=== PATIENT | female | born 1930 | race Caucasian/White ===

== ENCOUNTER 2017-04-07 16:28 | Observation (INO) ==
[2017-04-07] MEDS ORDERED: ONDANSETRON 4 MG/2 ML VIAL IV PRN (16:34)
[2017-04-07] MEDS ORDERED: ACETAMINOPHEN 325 MG TABLET PO PRN (16:34)
--- NOTE | 2017-04-07 17:37 | General Surg History&Physical ---
Assessment and Plan - Time spent with patient Time spent with patient: Less than 30 minutes (1) Post-op bleeding Problem details: Patient with post op bleeding, admitted for observation and possible control of bleeding if it recurs vs. evacuation of hematoma in the morning. Status: Acute Assessment and plan: We will plan to observe with serial labs; watch her vitals closely overnight, and take to surgery in the morning if she develops a hematoma. If she remains stable we can probably discharge home in the morning. History of Present Illness Chief complaint: Post procedural bleeding History of present illness: Ms. Brothers is a 86 year old female who presented to the office today for elective removal of a recurrent lesion of the left gluteal region. This was accomplished with some difficulty, and once the area had been removed, there was more than the anticipated amount of post procedural bleeding encountered. Using a combination of electrocautery, vicryl sutures, and nylon sutures, the bleeding area was ligated and the skin area was eventually sutured closed. It became evident that, with the difficulty we had in controlling the area, she was at an increased risk for hematoma or recurrent bleeding. She is an elderly lady who lives alone, over 40 miles from [place], and Dr Bird felt we needed to admit her overnight for observation of her labs and vital signs; if there is significant bleeding she may need to be taken to the operating room for control of this area. Home Medications Medication Instructions Recorded Confirmed Type Ascorbic Acid [Vitamin C] 1,000 mg PO BID 10/05/16 10/06/16 History Aspirin Tab 325 mg PO DAILY 10/05/16 10/06/16 History Carvedilol 12.5 mg PO BID 10/05/16 10/06/16 History Cholecalciferol (Vitamin D3) 5,000 unit PO DAILY 10/05/16 10/06/16 History [Vitamin D3] Cyanocobalamin (Vitamin B-12) 1,000 mcg PO DIRECTED 10/05/16 10/06/16 History [Vitamin B-12] Levothyroxine Tab [Synthroid Tab] 125 mcg PO DAILY 10/05/16 10/06/16 History Allergies Allergy/AdvReac Type Severity Reaction Status Date / Time codeine Allergy Vomiting Verified 10/06/16 07:08 Sulfa (Sulfonamide Allergy Vomiting Verified 10/06/16 07:08 Antibiotics) Medical,Surgical,& Family Hx - Medical History Neurology: No history of: Seizures Rheumatology: History of;: Psoriasis (Psoriatic arthritis) - Social History Smoking Status: Former smoker Exam - Constitutional General appearance: no acute distress - Head Head exam: Present: normal inspection - Eye Eye exam: Present: EOMI Pupils: Present: TITO - ENT Mouth exam: Present: normal voice - Respiratory Respiratory exam: Present: clear to auscultation bilaterally. Absent: rales, wheezes - Cardiovascular Cardiovascular exam: Present: RRR - GI/Abdominal GI/Abdominal exam: Present: hypoactive bowel sounds - Anus/Rectum Anus/Rectum: other (Approximated but oozing incision of the left gluteal area.) - Extremities Exam Extremities exam: Present: normal inspection - Neurological Exam Neurological exam: Present: alert, oriented X3 - Skin Skin exam: Present: warm, dry Quality Measures - VTE Contraindication to Pharmacological VTE Prophylaxis: High Risk of Bleeding
[2017-04-07 17:50] LABS: Basophils % 0.5 % (0.0-0.8); Eosinophils # 0.1 10*3/uL (0.0-0.87); Eosinophils % 1.5 % (0.00-10.9); Hematocrit 42.3 VOL% (35.7-47.0); Immature Granulocytes % 0.3 %; Immature Granulocytes Absolute 0.02 #; Lymphocytes # 2.7 10*3/uL (1.4-4.0); Mean Corpuscular HGB Conc 33.1 GM/DL (32-36); Mean Corpuscular Hemoglobin 31 PG (27-34); Mean Corpuscular Volume 92.8 FL (87-102); Mean Platelet Volume 11.5 FL (9.6-12.0); Monocytes # 0.4 10*3/uL (0.11-0.8); Monocytes % 6.3 % (1.7-12.7); Neutrophils # 2.7 10*3/uL (1.4-7.4); Neutrophils % 45.4 % (38.7-73.9); Platelet Count 144 T/CUMM (130-400); Red Blood Count 4.56 MC/CUMM (3.8-5.5); Red Cell Distribution Width 12.8 % (9.3-17.3); White Blood Count 5.9 T/CUMM (4-12)
[2017-04-07 18:01] LABS: PT Patient Result 11.1 SECS
[2017-04-07 18:32] LABS: Albumin 4.2 G/DL (3.4-5.0); Bilirubin,Total 0.7 MG/DL (0.2-1.0); Calcium 9.6 MG/DL (8.5-10.1); Osmolality,Calculated 272.7 MOS/KG (273-304); Potassium 4.2 MMOL/L (3.5-5.1); Total Protein 7.5 G/DL (6.4-8.3)
[2017-04-08 03:04] LABS: Basophils % 0.8 % (0.0-0.8); Eosinophils # 0.1 10*3/uL (0.0-0.87); Eosinophils % 1.8 % (0.00-10.9); Hematocrit 38.8 VOL% (35.7-47.0); Hemoglobin 12.8 GM/DL (12.0-16.0); Immature Granulocytes % 0.2 %; Immature Granulocytes Absolute 0.01 #; Lymphocytes # 2.8 10*3/uL (1.4-4.0); Lymphocytes % 55.1 % (21.3-54.2); Mean Corpuscular Hemoglobin 31 PG (27-34); Mean Corpuscular Volume 92.4 FL (87-102); Mean Platelet Volume 11.4 FL (9.6-12.0); Monocytes # 0.3 10*3/uL (0.11-0.8); Monocytes % 6.4 % (1.7-12.7); Neutrophils # 1.8 10*3/uL (1.4-7.4); Neutrophils % 35.7 % (38.7-73.9); Platelet Count 132 T/CUMM (130-400); Red Cell Distribution Width 12.8 % (9.3-17.3); White Blood Count 5.1 T/CUMM (4-12)
[2017-04-08 03:34] LABS: Band Neutrophils 2 % (0-10); Lymphocytes 53 % (20-55); Myelocytes 3 %; Segmented Neutrophils 42 % (50-85)
[2017-04-08 03:35] LABS: Albumin 3.6 G/DL (3.4-5.0); Bilirubin,Total 0.6 MG/DL (0.2-1.0); Calcium 9.1 MG/DL (8.5-10.1); Osmolality,Calculated 278.3 MOS/KG (273-304); Potassium 4.1 MMOL/L (3.5-5.1); Total Protein 6.6 G/DL (6.4-8.3)
[2017-04-08 03:38] LABS: Platelet Estimate Adequate; Total Cells Counted 100
[2017-04-08 08:23] VITALS: BP 157/55
[2017-04-08] MEDS ORDERED: PANTOPRAZOLE 40 MG TABLET PO SCH (09:00)
--- NOTE | 2017-04-08 09:13 | Discharge Summary ---
Hospital Course - Hospital Course Hospital Course: Discharge summary 04/08/2017. Diagnosis: 1. Postprocedural bleeding the left buttocks Brief [id number]old white female seen in our office for elective excision of unusual recurrent lesion of left buttocks. This had initially been removed in the office, and we felt it feasible to re-excise, however once the lesion was removed, it became evident that she had a good deal oozing from the skin edges, making quite difficult to achieve hemostasis. With combination of electrocautery and layered closure, we were eventually able to get the wound dry and closed, but remained concerned that the area would develop recurrent bleeding, additional significant bruising, and/or hematoma. At that point, Dr. Bird felt we needed to admit her for observation. She was placed in observation status at the hospital, where her initial hematocrit was found to be 48. Her vital signs were stable, and the wound was dry with minimal oozing from the skin edges. She had clear liquids without nausea vomiting or any signs of syncope. We did hold her n.p.o. overnight, with the plans for reassessing the wound this morning and evacuating any hematoma or reinspecting for bleeding if necessary. The wound remained dry overnight, not requiring any reinforcement of the dressing, and this morning she is awake and alert without symptoms, vital signs are completely stable, she is not short of breath and is ambulatory in the room without assistance. Her hematocrit is 35, the wound is clean and dry. There is a moderate degree of ecchymosis present but no signs of hematoma, and there is no oozing from the skin edges. With the wound looking stable and no evidence of ongoing bleeding or signs of hematoma, we will therefore plan to send her home although we will enlist the help of a home health agency in her area to help observe and manage her wound care. Will resume all her home medications, in particular her 81 mg aspirin, and plan to have her use a donut cushion for sitting in addition to the local care with triple antibiotic ointment and foam dressings. We will plan to follow-up on the pathology report as indicated, and see her back in the office in approximately 2 weeks for consideration for suture removal. - Time spent with patient Time with patient DS: Less than 30 minutes Diagnosis - Discharge Diagnosis (1) Post-op bleeding Status: Acute Specialty Discharge - Follow Up or Referrals Follow up with: Daniel Bird MD [Physician] - 2 Weeks (Call our office Tuesday to schedule a 2 week appointment for suture removal) Discharge Plan - Discharge Data Disposition: Home Health Service Condition at Discharge: Stable Discharge Diet: advance to your usual diet Activity: other (Limit sitting; use a doughnut cushion) Hygiene: may shower Weight Bearing at Discharge: full weight bearing Driving: not for (24 hour) Contact your physician if you experience:: Redness or swelling, Shortness of breath, Bleeding, pain uncontrolled by pain medications Wound / Dressing Care Instructions: Shower daily using antibacterial soap and water. Rinse well and pat dry. Apply thin film of triple antibiotic ointment to suture line only. Cover with foam adhesive dressing. - Discharge Medications Continue Levothyroxine Tab [Synthroid Tab] 125 mcg PO DAILY Cyanocobalamin (Vitamin B-12) [Vitamin B-12] 1,000 mcg PO DIRECTED Cholecalciferol (Vitamin D3) [Vitamin D3] 5,000 unit PO DIRECTED Carvedilol 12.5 mg PO BID Ascorbic Acid [Vitamin C] 1,000 mg PO DIRECTED Aspirin Tab 325 mg PO DAILY Oxycodone HCl/Acetaminophen [Oxycodon-Acetaminophen 7.5-325] 1 each PO Q4-6H PRN PRN Reason: Pain Moderate To Severe (4-10) - Follow Up or Referral Follow Up: Daniel Bird MD [Physician] - 2 Weeks (Call our office Tuesday to schedule a 2 week appointment for suture removal) - Forms/Instructions Exam - Constitutional Vitals: Period Temp Pulse Resp BP Sys/Serrano Pulse Ox Last 24 Hr 97.1 F-98.3 F 61-75 16-20 100-157/49-65 90-97 General appearance: normal weight, no acute distress - Head Head exam: Present: normal inspection - Eye Eye exam: Present: EOMI. Absent: nystagmus, periorbital swelling Pupils: Present: TITO - Respiratory Respiratory exam: Present: clear to auscultation bilaterally. Absent: wheezes - Cardiovascular Cardiovascular exam: Present: regular rate and rhythm - GI/Abdominal GI/Abdominal exam: Present: hypoactive bowel sounds, soft. Absent: distended - Extremities Exam Extremities exam: Present: normal inspection - Back Exam Back exam: Present: other (Left buttocks incision is clean and well approximated , without oozing or active bleeding from the skin edges. There is moderate amount of ecchymosis in the superior medial aspect, but this is soft and nontender. There is no evidence of hematoma. He is not unusually tender.) - Neurological Exam Neurological exam: Present: alert, oriented X3, normal gait - Psychiatric Psychiatric exam: Present: normal affect, normal mood Discharge Results Labs on day of discharge: Labs from last 24 hours 04/08/17 04/08/17 04/07/17 02:46 02:46 17:18 WBC 5.1 RBC 4.20 Hgb 12.8 Hct 38.8 MCV 92.4 MCH 31 MCHC 33.0 RDW 12.8 Plt Count 132 MPV 11.4 Neut % (Auto) 35.7 L Lymph % (Auto) 55.1 H [place] % (Auto) 6.4 Eos % (Auto) 1.8 Baso % (Auto) 0.8 Neut # (Auto) 1.8 Lymph # (Auto) 2.8 [place] # (Auto) 0.3 Eos # (Auto) 0.1 Baso # (Auto) 0.0 Total Counted 100 Immature Gran % 0.2 Nucleated RBC % 0.0 Immature Gran # 0.01 Segmented Neutrophils 42 L Band Neutrophils 2 Lymphocytes 53 Myelocytes 3 Nucleated RBCs # 0.00 Platelet Estimate Adequate Immature Plt Fraction 0.0 INR 1.0 PT Patient/Control Mix 11.1 Sodium 141 Potassium 4.1 Chloride 105 Carbon Dioxide 31 Anion Gap 9.1 BUN 9 Creatinine 0.50 L GFR Calculation 91 BUN/Creatinine Ratio 18.00 Glucose 84 Calculated Osmolality 278.3 Calcium 9.1 Total Bilirubin 0.60 AST 13 ALT 11 L Alkaline Phosphatase 53 Total Protein 6.6 Albumin 3.6 Globulin 3.0 Albumin/Globulin Ratio 1.2 04/07/17 04/07/17 17:18 17:18 WBC 5.9 RBC 4.56 Hgb 14.0 Hct 42.3 MCV 92.8 MCH 31 MCHC 33.1 RDW 12.8 Plt Count 144 MPV 11.5 Neut % (Auto) 45.4 Lymph % (Auto) 46.0 [place] % (Auto) 6.3 Eos % (Auto) 1.5 Baso % (Auto) 0.5 Neut # (Auto) 2.7 Lymph # (Auto) 2.7 [place] # (Auto) 0.4 Eos # (Auto) 0.1 Baso # (Auto) 0.0 Total Counted Immature Gran % 0.3 Nucleated RBC % 0.0 Immature Gran # 0.02 Segmented Neutrophils Band Neutrophils Lymphocytes Myelocytes Nucleated RBCs # 0.00 Platelet Estimate Immature Plt Fraction 0.0 INR PT Patient/Control Mix Sodium 138 Potassium 4.2 Chloride 101 Carbon Dioxide 31 Anion Gap 10.2 BUN 10 Creatinine 0.60 GFR Calculation 86 BUN/Creatinine Ratio 16.00 Glucose 82 Calculated Osmolality 272.7 L Calcium 9.6 Total Bilirubin 0.70 AST 17 ALT 14 Alkaline Phosphatase 59 Total Protein 7.5 Albumin 4.2 Globulin 3.3 Albumin/Globulin Ratio 1.2 DS: Provider Date of admission: 04/07/17 16:54 Primary care physician: Cinda Webb Attending physician on admission: Daniel Bird MD Discharging clinician: Keya Garrison CNP, R
--- NOTE | 2017-04-08 10:05 | EKG Report ---
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
== END 2017-04-08 13:15 | disposition home health service (06) ==
LOC: N.4E
PROVIDERS: ADMIT Specialist; ATTEND Specialist

== ENCOUNTER 2019-10-08 10:49 | Observation (INO) ==
[2019-10-08] MEDS ORDERED: DICLOFENAC 1.3% PATCH 5/PACK TRANSDERM PRN (14:05)
[2019-10-08 14:41] LABS: Risk Ratio 3.16; Thyroid Stimulating Hormone 3.36 uIU/ml (0.358-3.74); VLDL CHOLESTEROL 20.2 MG/DL
[2019-10-08] MEDS ORDERED: cefTRIAXone 1,000 MG in SYRINGE 1 EACH IV SCH ×2 (15:00→16:00)
[2019-10-08] MEDS ORDERED: AZITHROMYCIN 250 MG TABLET PO SCH ×2 (15:00→16:00)
[2019-10-08] MEDS ORDERED: FUROSEMIDE 40 MG/4 ML VIAL IV SCH (16:00)
[2019-10-08] MEDS: FUROSEMIDE 40 MG/4 ML VIAL IV SCH (16:36)
[2019-10-08] MEDS: HEPARIN 5,000 UNIT/1 ML VIAL SUBCUT SCH (16:49)
[2019-10-08 17:40] LABS: Apearance,Urine CLEAR (Clear); Bilirubin,Urine Negative (Negative); Blood, Urine Negative (Negative); Glucose,Urine (UA) Negative (Negative); Ketones,Urine Negative (Negative); Mucus,Urine Occasional /LPF (Occasional); Nitrite,Urine Negative (Negative); Protein,Urine Negative; RBC,Urine 2 /HPF (0-4); Squamous Epithelial Cell,Urine Occasional /HPF (0-10); Urine Color Straw (Yellow); Urine Specific Gravity 1.004 (1.001-1.035); Urine Urobilinogen < 2.0 EU/DL (0.2-1.0); WBC,Urine 6 /HPF (0-6)
[2019-10-08] MEDS: ALBUTEROL/IPRATROPIUM 3 ML NEB RESP TX SCH (18:58)
[2019-10-08] MEDS ORDERED: ALBUTEROL/IPRATROPIUM 3 ML NEB RESP TX SCH (19:00)
[2019-10-08] MEDS: oxyCODONE/ACETAMINOPHEN 5-325 MG TABLET PO PRN (20:04)
[2019-10-08] MEDS: guaiFENesin/DM ER 600-30 MG TABLET PO SCH (20:04)
[2019-10-08] MEDS: carvediloL 12.5 MG TABLET PO SCH (20:04)
[2019-10-08] MEDS ORDERED: carvediloL 6.25 MG TABLET PO SCH (21:00)
[2019-10-09] MEDS: HEPARIN 5,000 UNIT/1 ML VIAL SUBCUT SCH ×2 (00:07→09:12)
[2019-10-09] MEDS: ALBUTEROL/IPRATROPIUM 3 ML NEB RESP TX SCH ×4 (01:28→19:39)
[2019-10-09 05:01] LABS: Basophils % 0.7 % (0.0-0.8); Eosinophils # 0.2 10*3/uL (0.0-0.87); Eosinophils % 2.6 % (0.00-10.9); Hematocrit 39.6 VOL% (35.7-47.0); Hemoglobin 12.4 GM/DL (12.0-16.0); Immature Granulocytes % 0.3 %; Immature Granulocytes Absolute 0.02 #; Lymphocytes % 34.8 % (21.3-54.2); Mean Corpuscular HGB Conc 31.3 GM/DL (32-36); Mean Corpuscular Volume 97.5 FL (87-102); Mean Platelet Volume 11.7 FL (9.6-12.0); Monocytes % 8.4 % (1.7-12.7); Neutrophils % 53.2 % (38.7-73.9); Platelet Count 149 T/CUMM (130-400); Red Blood Count 4.06 MC/CUMM (3.8-5.5); Red Cell Distribution Width 13.3 % (9.3-17.3); White Blood Count 5.8 T/CUMM (4-12)
[2019-10-09] MEDS ORDERED: THYROID 60 MG TABLET PO SCH (09:00)
[2019-10-09] MEDS ORDERED: ASPIRIN EC 81 MG TABLET PO SCH (09:00)
[2019-10-09] MEDS ORDERED: ASCORBIC ACID 500 MG TABLET PO SCH (09:00)
[2019-10-09] MEDS: guaiFENesin/DM ER 600-30 MG TABLET PO SCH ×2 (09:11→21:20)
[2019-10-09] MEDS: FUROSEMIDE 40 MG/4 ML VIAL IV SCH ×2 (09:11→16:27)
[2019-10-09] MEDS: carvediloL 12.5 MG TABLET PO SCH ×2 (09:12→21:20)
[2019-10-09] MEDS: MULTIVITAMIN (CENTRUM) TABLET PO SCH (09:12)
[2019-10-09] MEDS: CHOLECALCIFEROL 5,000 UNIT TABLET PO SCH (09:12)
[2019-10-09] MEDS: ASPIRIN EC 81 MG TABLET PO SCH (09:12)
[2019-10-09 11:36] LABS: Free T4 (Free Thyroxine) 0.63 NG/DL (0.76-1.46)
[2019-10-09] MEDS: APIXABAN 2.5 MG TABLET PO SCH (21:20)
[2019-10-09] MEDS: ASCORBIC ACID 500 MG TABLET PO SCH (21:21)
[2019-10-10] MEDS: ALBUTEROL/IPRATROPIUM 3 ML NEB RESP TX SCH ×4 (01:20→14:03)
[2019-10-10 04:39] LABS: Basophils # 0.1 10*3/uL (0.0-0.2); Basophils % 0.7 % (0.0-0.8); Eosinophils # 0.2 10*3/uL (0.0-0.87); Eosinophils % 3.2 % (0.00-10.9); Hematocrit 40.1 VOL% (35.7-47.0); Hemoglobin 13.4 GM/DL (12.0-16.0); Immature Granulocytes % 0.6 %; Immature Granulocytes Absolute 0.04 #; Lymphocytes # 2.4 10*3/uL (1.4-4.0); Lymphocytes % 34.7 % (21.3-54.2); Mean Corpuscular HGB Conc 33.4 GM/DL (32-36); Mean Corpuscular Volume 92.6 FL (87-102); Mean Platelet Volume 11.7 FL (9.6-12.0); Monocytes % 8.7 % (1.7-12.7); Neutrophils % 52.1 % (38.7-73.9); Platelet Count 182 T/CUMM (130-400); Red Blood Count 4.33 MC/CUMM (3.8-5.5); Red Cell Distribution Width 13.2 % (9.3-17.3); White Blood Count 6.9 T/CUMM (4-12)
[2019-10-10 05:05] LABS: Calcium 9.2 MG/DL (8.5-10.1); Osmolality,Calculated 267.4 MOS/KG (273-304)
[2019-10-10] MEDS ORDERED: THYROID 60 MG TABLET PO SCH (07:00)
[2019-10-10] MEDS: oxyCODONE/ACETAMINOPHEN 5-325 MG TABLET PO PRN (08:47)
[2019-10-10] MEDS: guaiFENesin/DM ER 600-30 MG TABLET PO SCH (08:47)
[2019-10-10] MEDS: CHOLECALCIFEROL 5,000 UNIT TABLET PO SCH (08:47)
[2019-10-10] MEDS: MULTIVITAMIN (CENTRUM) TABLET PO SCH (08:49)
[2019-10-10] MEDS: ASCORBIC ACID 500 MG TABLET PO SCH (08:49)
[2019-10-10] MEDS: ASPIRIN EC 81 MG TABLET PO SCH (08:49)
[2019-10-10] MEDS: APIXABAN 2.5 MG TABLET PO SCH (08:49)
[2019-10-10] MEDS: carvediloL 12.5 MG TABLET PO SCH (08:49)
[2019-10-10] MEDS: FUROSEMIDE 40 MG/4 ML VIAL IV SCH (08:50)
[2019-10-10 11:40] VITALS: BP 93/47
[2019-10-11] MEDS ORDERED: FUROSEMIDE 40 MG TABLET PO SCH (09:00)
[2019-11-06] MEDS ORDERED: CYANOCOBALAMIN 500 MCG TABLET PO SCH (09:00)
== END 2019-10-10 15:36 | disposition swing bed (61) ==
LOC: INTOOBSV 11:10 → N.TELES 11:10 → SUATTDRO 11:10
PROVIDERS: ADMIT Internal Medicine; ATTEND Internal Medicine

== ENCOUNTER 2020-09-26 12:13 | Observation (INO) ==
[2020-09-26] MEDS ORDERED: ONDANSETRON 4 MG/2 ML VIAL IV PRN (16:36)
[2020-09-26] MEDS ORDERED: GLUCAGON 1 MG VIAL IM PRN (16:36)
[2020-09-26] MEDS ORDERED: DEXTROSE 50% 25 GM/50 ML VIAL IV PRN (16:36)
[2020-09-26] MEDS ORDERED: ENOXAPARIN 30 MG/0.3 ML SYRINGE SUBCUT SCH (17:00)
[2020-09-26] MEDS ORDERED: [UNRECOGNIZED DRUG - OTHER] TOP PRN (18:41)
[2020-09-26 19:43] LABS: Basophils % 0.4 % (0.0-0.8); Eosinophils # 0.1 10*3/uL (0.0-0.87); Eosinophils % 1.1 % (0.00-10.9); Hematocrit 42.1 VOL% (35.7-47.0); Hemoglobin 13.2 GM/DL (12.0-16.0); Immature Granulocytes % 0.2 %; Immature Granulocytes Absolute 0.01 #; Lymphocytes # 1.4 10*3/uL (1.4-4.0); Lymphocytes % 30.7 % (21.3-54.2); Mean Corpuscular HGB Conc 31.4 GM/DL (32-36); Mean Corpuscular Volume 94.4 FL (87-102); Mean Platelet Volume 11.8 FL (9.6-12.0); Monocytes % 7.1 % (1.7-12.7); Neutrophils % 60.5 % (38.7-73.9); Platelet Count 123 T/CUMM (130-400); Red Blood Count 4.46 MC/CUMM (3.8-5.5); Red Cell Distribution Width 13.5 % (9.3-17.3); White Blood Count 4.6 T/CUMM (4-12)
[2020-09-26 19:54] LABS: Calcium 9.1 MG/DL (8.5-10.1); Osmolality,Calculated 277.5 MOS/KG (273-304); Potassium 4.1 MMOL/L (3.5-5.1)
[2020-09-26 21:06] LABS: Alanine Aminotransferase 9 U/L (13-56); Albumin 2.8 G/DL (3.4-5.0); Alkaline Phosphatase 62 U/L (45-117); Aspartate Amino Transferase 15 U/L (0-37); Blood Urea Nitrogen 9 MG/DL (7-18); Calcium 8.9 MG/DL (8.5-10.1); Carbon Dioxide 29 MMOL/L (21-32); Estimated Glom Filtration Rate 87 ML/MIN; Glucose 105 MG/DL (74-106); Potassium 3.9 MMOL/L (3.5-5.1); Sodium 136 MMOL/L (136-145); Total Protein 6.4 G/DL (5.0-7.5); Troponin I < 0.015 NG/ML (0.00-0.045)
[2020-09-26] MEDS: carvediloL 12.5 MG TABLET PO SCH (21:40)
[2020-09-27] MEDS: THYROID 60 MG TABLET PO SCH (05:45)
[2020-09-27] MEDS: ACETAMINOPHEN 325 MG TABLET PO PRN ×2 (05:45→16:09)
[2020-09-27 05:55] LABS: Basophils % 0.6 % (0.0-0.8); Eosinophils # 0.1 10*3/uL (0.0-0.87); Eosinophils % 2.3 % (0.00-10.9); Hematocrit 37.5 VOL% (35.7-47.0); Immature Granulocytes % 0.2 %; Immature Granulocytes Absolute 0.01 #; Lymphocytes # 1.7 10*3/uL (1.4-4.0); Lymphocytes % 35.7 % (21.3-54.2); Mean Platelet Volume 11.2 FL (9.6-12.0); Monocytes % 9.3 % (1.7-12.7); Neutrophils % 51.9 % (38.7-73.9); Platelet Count 122 T/CUMM (130-400); Red Blood Count 3.99 MC/CUMM (3.8-5.5); Red Cell Distribution Width 13.3 % (9.3-17.3); White Blood Count 4.7 T/CUMM (4-12)
[2020-09-27 06:11] LABS: Hypochromasia Slight; Microcytosis Slight
[2020-09-27 06:17] LABS: Potassium 3.7 MMOL/L (3.5-5.1)
[2020-09-27 06:22] LABS: Troponin I < 0.015 NG/ML (0.00-0.045)
[2020-09-27] MEDS: MULTIVITAMIN (CENTRUM) TABLET PO SCH (08:17)
[2020-09-27] MEDS: CHOLECALCIFEROL 5,000 UNIT TABLET PO SCH (08:17)
[2020-09-27] MEDS: ASCORBIC ACID 500 MG TABLET PO SCH (08:17)
[2020-09-27] MEDS: carvediloL 12.5 MG TABLET PO SCH ×2 (08:17→16:09)
[2020-09-27] MEDS: CYANOCOBALAMIN 500 MCG TABLET PO SCH (08:17)
[2020-09-27] MEDS ORDERED: ASPIRIN 325 MG TABLET PO SCH (09:00)
[2020-09-27] MEDS ORDERED: FUROSEMIDE 40 MG/4 ML VIAL IV SCH (09:00)
[2020-09-27 17:09] LABS: Bilirubin,Urine Negative (Negative); Blood, Urine Negative (Negative); Glucose,Urine (UA) Negative (Negative); Hyaline Casts,Urine 1 /LPF (0-3); Ketones,Urine Negative (Negative); Mucus,Urine Occasional /LPF (Occasional); Nitrite,Urine Negative (Negative); Protein,Urine Negative; Squamous Epithelial Cell,Urine Occasional /HPF (0-10); Urine Appearance CLEAR (Clear); Urine Color Yellow (Yellow); Urine Urobilinogen < 2.0 EU/DL (0.2-1.0)
[2020-09-28 05:09] LABS: Basophils % 0.7 % (0.0-0.8); Eosinophils # 0.2 10*3/uL (0.0-0.87); Eosinophils % 3.6 % (0.00-10.9); Hematocrit 37.8 VOL% (35.7-47.0); Hemoglobin 12.2 GM/DL (12.0-16.0); Immature Granulocytes % 0.5 %; Immature Granulocytes Absolute 0.02 #; Lymphocytes # 1.8 10*3/uL (1.4-4.0); Lymphocytes % 42.2 % (21.3-54.2); Mean Corpuscular HGB Conc 32.3 GM/DL (32-36); Mean Corpuscular Volume 93.1 FL (87-102); Mean Platelet Volume 11.4 FL (9.6-12.0); Monocytes % 8.3 % (1.7-12.7); Neutrophils % 44.7 % (38.7-73.9); Platelet Count 112 T/CUMM (130-400); Red Blood Count 4.06 MC/CUMM (3.8-5.5); Red Cell Distribution Width 13.3 % (9.3-17.3); White Blood Count 4.2 T/CUMM (4-12)
[2020-09-28 05:28] LABS: Hypochromasia Slight; Microcytosis Slight
[2020-09-28 05:29] LABS: Platelet Estimate Decreased
[2020-09-28] MEDS: THYROID 60 MG TABLET PO SCH (05:46)
[2020-09-28 06:42] LABS: Calcium 8.9 MG/DL (8.5-10.1); Potassium 3.9 MMOL/L (3.5-5.1)
[2020-09-28] MEDS: carvediloL 12.5 MG TABLET PO SCH ×2 (09:27→16:50)
[2020-09-28] MEDS: MULTIVITAMIN (CENTRUM) TABLET PO SCH (09:28)
[2020-09-28] MEDS: CHOLECALCIFEROL 5,000 UNIT TABLET PO SCH (09:29)
[2020-09-28] MEDS: CYANOCOBALAMIN 500 MCG TABLET PO SCH (09:29)
[2020-09-28] MEDS: ASCORBIC ACID 500 MG TABLET PO SCH (09:29)
[2020-09-28] MEDS ORDERED: VERAPAMIL SR 120 MG TABLET PO SCH (10:30)
[2020-09-28] MEDS: ACETAMINOPHEN 325 MG TABLET PO PRN (14:52)
[2020-09-29 05:01] LABS: Basophils % 0.6 % (0.0-0.8); Eosinophils # 0.2 10*3/uL (0.0-0.87); Eosinophils % 3.7 % (0.00-10.9); Hematocrit 37.5 VOL% (35.7-47.0); Hemoglobin 11.6 GM/DL (12.0-16.0); Immature Granulocytes % 0.2 %; Immature Granulocytes Absolute 0.01 #; Lymphocytes # 1.8 10*3/uL (1.4-4.0); Lymphocytes % 37.9 % (21.3-54.2); Mean Corpuscular HGB Conc 30.9 GM/DL (32-36); Mean Corpuscular Volume 96.2 FL (87-102); Mean Platelet Volume 11.4 FL (9.6-12.0); Monocytes % 8.9 % (1.7-12.7); Neutrophils % 48.7 % (38.7-73.9); Platelet Count 123 T/CUMM (130-400); Red Cell Distribution Width 13.2 % (9.3-17.3); White Blood Count 4.9 T/CUMM (4-12)
[2020-09-29 05:23] LABS: Calcium 9.1 MG/DL (8.5-10.1); Osmolality,Calculated 276.5 MOS/KG (273-304); Potassium 4.1 MMOL/L (3.5-5.1)
[2020-09-29 05:26] LABS: Hypochromasia 1+
[2020-09-29 05:27] LABS: Microcytosis Slight; Platelet Estimate Adequate
[2020-09-29 05:32] LABS: Osmolality,Calculated 276.5 MOS/KG (273-304); Potassium 4.2 MMOL/L (3.5-5.1)
[2020-09-29] MEDS: THYROID 60 MG TABLET PO SCH (05:34)
[2020-09-29] MEDS: ASCORBIC ACID 500 MG TABLET PO SCH (08:16)
[2020-09-29] MEDS: CHOLECALCIFEROL 5,000 UNIT TABLET PO SCH (08:16)
[2020-09-29] MEDS: CYANOCOBALAMIN 500 MCG TABLET PO SCH (08:17)
[2020-09-29] MEDS: MULTIVITAMIN (CENTRUM) TABLET PO SCH (08:17)
[2020-09-29] MEDS: carvediloL 12.5 MG TABLET PO SCH ×2 (08:17→16:55)
[2020-09-29] MEDS ORDERED: NITROGLYCERIN SL 0.4 MG TABLET SL PRN (10:09)
[2020-09-29] MEDS: ASPIRIN EC 81 MG TABLET PO SCH (11:25)
[2020-09-29] MEDS: LOSARTAN 25 MG TABLET PO SCH (11:25)
[2020-09-29] MEDS ORDERED: ATORVASTATIN 20 MG TABLET PO SCH (21:00)
[2020-09-30] MEDS: THYROID 60 MG TABLET PO SCH (06:20)
[2020-09-30 06:40] LABS: Basophils % 0.6 % (0.0-0.8); Eosinophils # 0.2 10*3/uL (0.0-0.87); Eosinophils % 3.1 % (0.00-10.9); Hematocrit 41.1 VOL% (35.7-47.0); Hemoglobin 12.9 GM/DL (12.0-16.0); Immature Granulocytes % 0.4 %; Immature Granulocytes Absolute 0.02 #; Lymphocytes # 1.8 10*3/uL (1.4-4.0); Lymphocytes % 37.9 % (21.3-54.2); Mean Corpuscular HGB Conc 31.4 GM/DL (32-36); Mean Corpuscular Volume 94.1 FL (87-102); Monocytes % 8.4 % (1.7-12.7); Neutrophils % 49.6 % (38.7-73.9); Platelet Count 117 T/CUMM (130-400); Red Blood Count 4.37 MC/CUMM (3.8-5.5); Red Cell Distribution Width 13.3 % (9.3-17.3); White Blood Count 4.8 T/CUMM (4-12)
[2020-09-30 07:00] LABS: Hypochromasia Slight; Osmolality,Calculated 276.4 MOS/KG (273-304); Potassium 4.8 MMOL/L (3.5-5.1)
[2020-09-30 07:01] LABS: Microcytosis Slight
[2020-09-30] MEDS: ASCORBIC ACID 500 MG TABLET PO SCH (09:06)
[2020-09-30] MEDS: LOSARTAN 25 MG TABLET PO SCH (09:06)
[2020-09-30] MEDS: CYANOCOBALAMIN 500 MCG TABLET PO SCH (09:07)
[2020-09-30] MEDS: carvediloL 12.5 MG TABLET PO SCH (09:07)
[2020-09-30] MEDS: ASPIRIN EC 81 MG TABLET PO SCH (09:07)
[2020-09-30] MEDS: MULTIVITAMIN (CENTRUM) TABLET PO SCH (09:08)
[2020-09-30] MEDS: CHOLECALCIFEROL 5,000 UNIT TABLET PO SCH (09:08)
[2020-09-30] MEDS ORDERED: SODIUM CHLORIDE 0.9% 500 ML IV ONE (12:01)
[2020-09-30 16:12] VITALS: BP 94/62
== END 2020-09-30 16:57 | disposition swing bed (61) ==
LOC: N.TELEN → SUATTDRO 14:31
PROVIDERS: ADMIT Internal Medicine; ATTEND Internal Medicine